=== PATIENT | male | born 1955 | race African-American/Black ===

== ENCOUNTER 2023-08-14 21:25 | Emergency (ER) | payer OTHER, MEDICARE ==
[2023-08-14 23:37] LABS: Influenza A by NAA Not Detected (NotDetected); Influenza B by NAA Not Detected (NotDetected); SARS-CoV-2 NAA Rapid Test Not Detected (NotDetected)
== END 2023-08-14 23:00 | disposition home or self-care (01) ==
LOC: CSHERS 21:25
DX: B34.9 Viral infection, unspecified (principal); R04.0 Epistaxis; J34.89 Other specified disorders of nose and nasal sinuses; I10 Essential (primary) hypertension; I48.91 Unspecified atrial fibrillation; F17.210 Nicotine dependence, cigarettes, uncomplicated; Z79.899 Other long term (current) drug therapy; Z79.01 Long term (current) use of anticoagulants
CPT/HCPCS: 71045